=== PATIENT | male | born 1945 | race Caucasian/White ===

== ENCOUNTER → 2019-01-14 | Outpatient (CLI) | payer MEDICARE, OTHER ==
[~2019-01-14] MED LIST: [UNRECOGNIZED DRUG - REMARK]
--- NOTE | 2019-01-14 12:15 | Diagnostic Imaging Report ---
EXAMINATION: Renal ultrasound. CLINICAL HISTORY :Renal cyst COMPARISON: 09/29/2017 TECHNIQUE: Grayscale and color Doppler evaluation of the kidneys and bladder was performed in transverse and longitudinal planes. DISCUSSION: RIGHT KIDNEY: The right kidney measures 9.2 cm in length and shows increased echogenicity. In the upper pole there is a lobulated anechoic lesion with posterior acoustic enhancement compatible with a simple cyst measuring 3.9 x 3.6 x 4.0 cm (previously 4.5 cm in maximum dimension). A punctate interpolar shadowing calculus is identified as well. LEFT KIDNEY: The left kidney measures 9.9 cm in length and shows increased echogenicity. Exophytic lower pole cyst measures 2.9 x 3 x 2.7 cm (previously 3.2 cm in greatest dimension). No solid mass lesion. BLADDER: Unremarkable. Right and left ureteral jets are identified. IMPRESSION: Bilateral renal cysts are stable to marginally decreased in size relative to 09/2017. No suspicious sonographic features. Increased renal cortical echogenicity suggestive of medical renal disease. Signed by: Dr. Hubert Jama M.D. on 01/14/2019 12:11 PM
--- NOTE | 2019-01-14 12:36 | Diagnostic Imaging Report ---
Exam: Abdominal film Clinical History: Renal stones Comparison: Renal ultrasound same day DISCUSSION: Bowel gas pattern shows no dilated, air-filled loops of bowel. No calcifications project over the renal shadows or expected ureteral courses. Punctate right renal calculus seen on the comparison ultrasound is not identified by plain radiography. Regional skeletal structures are intact. No organomegaly. IMPRESSION: No plain film evidence of urolithiasis. Refer to renal ultrasound same day for description of punctate right renal calculus. Signed by: Dr. Hubert Jama M.D. on 01/14/2019 12:33 PM
== END ==
LOC: US 11:03
PROVIDERS: ATTEND Urology
DX: N20.0 Calculus of kidney (principal); N28.1 Cyst of kidney, acquired
CPT/HCPCS: 74018; 76770